=== PATIENT | female | born 1965 | race Caucasian/White ===

== ENCOUNTER 2022-02-05 10:00 | Outpatient (CLI) | payer BC, SELFPAY ==
--- NOTE | 2022-02-05 10:00 | CRLHL7_ITS ---
For Patients: As a result of the 21st Century Cures Act, medical imaging exams and procedure reports are released immediately into your electronic medical record. You may view this report before your referring provider. If you have questions, please contact your health care provider. INDICATION: Right-sided otalgia. TECHNIQUE: CT of the temporal bones without contrast. Coronal and axial small field of view reconstructions of both temporal bones are included. COMPARISON: Temporal bone CT from 12/19/2016. FINDINGS: Right temporal bone: Interval postsurgical changes of right canal wall up mastoidectomy. Mastoid cavity contains gas/air. Right-sided tympanostomy tube is noted. The scutum is mildly blunted. Mild erosions along the superior margin of the superior malleus head and incus are similar compared to prior exam. Ossicular chain is otherwise intact. There is a large defect within the tegmen tympani which measures up to 9 x 11 millimeters in axial diameter. Small amount of soft tissue is present within the superior epitympanum, interposed within this defect. The right middle ear cleft is otherwise well aerated. No evidence of fenestral or retrofenestral otospongiosis. No sclerosis within the labyrinthine canal. 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 Normal cochlear morphology with appropriate number of turns. Vestibular aqueduct is normal in size. Facial nerve canal is intact and normal in course/caliber. Petrous apex is normal. The carotid canal and jugular foramen are normal. Left temporal bone: Interval postsurgical changes of left-sided canal wall up mastoidectomy. Large plug of soft tissue density material within the mastoid cavity is predominantly low density. There is medialization of the left-sided tympanic membrane. There is near complete opacification of the left-sided middle ear cleft. There is blunting of the left sided scutum. The ossicular chain remains intact, although the stapes is poorly visualized due to surrounding soft tissue. There is a large defect within the left-sided tegmen tympani, which measures 9 x 11 millimeters in axial plane. Small amount of soft tissue interposed within the defect. The otic capsule is normal in appearance. No evidence of fenestral or retrofenestral otospongiosis. No sclerosis within the labyrinthine canal. The vestibule and semicircular canals are normal in morphology with no evidence of semicircular canal dehiscence. Normal cochlear morphology with appropriate number of turns. Vestibular aqueduct is normal in size. Facial nerve canal is intact and normal in course/caliber. Petrous apex is normal. The carotid canal and jugular foramen are normal. Multiple lucent defects within the bilateral sphenoid wing/middle cranial fossa floor. Partially empty sella. Orbits are normal. Imaged soft tissue structures are normal in appearance. The paranasal sinuses are well aerated. IMPRESSION: 1. Interval postsurgical changes of bilateral canal wall up mastoidectomies. Right-sided mastoidectomy bowl is clear, whereas the left-sided bowl contains soft tissue. 2. Large defects within the bilateral tegmen tympani compatible with dehiscence. These were present on the prior exam. These defects reflects sequela of cholesteatoma or be due to meningoceles from chronic elevated CSF pressure. There are additional findings suggestive of idiopathic intracranial hypertension, including multiple lucent defects within the middle cranial fossa floor as well as a partially empty sella. Clinical correlation recommended. Temporal bone MRI would be useful further assessment if clinically indicated. 3. Stable mild erosive changes involving the right superior malleus head and incus body. No new erosive changes involving the saccular chain. Middle ear cleft on the left is completely opacified with nonspecific material whereas the right is well aerated. 4. Right superior semicircular canal dehiscence. Please note that all CT scans at this facility use dose modulation, iterative reconstruction, and/or weight-based dosing when appropriate to reduce radiation dose to as low as reasonably achievable. Dictated by Gilmar Kemp MD @ 02/06/2022 10:22:08 AM (Electronically Signed)
== END 2022-02-05 10:01 | disposition home or self-care (01) ==
LOC: CT 10:01
PROVIDERS: PCP Family Medicine; Visit Provider Otolaryngology
DX: H92.01 Otalgia, right ear (principal)
CPT/HCPCS: 70480

== ENCOUNTER 2022-02-07 08:21 | Day surgery (SDC) | payer BC, SELFPAY ==
[2022-02-07] VITALS (10 sets, daily range): BP systolic 112–134; BP diastolic 57–88; PULSE 67–76; RESP 16; TEMP 36.5–37.1; O2SAT 95–98; BMI 29.5
[2022-02-07] MEDS: SODIUM CHLORIDE 0.9 % (FLUSH) 10 ML SYRINGE IVF (09:01)
[2022-02-07] MEDS: LACTATED RINGERS 1000 ML 1,000 ML 100 ML IV (09:01)
--- NOTE | 2022-02-07 10:02 | W.ANESCHARGE ---
Anesthesia Charges Start Date/Time Anesthesia Start Date: 02/07/22 Anesthesia Start Time: 09:34 Stop Date/Time Anesthesia Stop Date: 02/07/22 Anesthesia Stop Time: 10:01 Summary Emergency: No
--- NOTE | 2022-02-07 10:08 | W.ANESCHARGE ---
Anesthesia Charges Start Date/Time Anesthesia Start Date: 02/07/22 Anesthesia Start Time: 09:34 Stop Date/Time Anesthesia Stop Date: 02/07/22 Anesthesia Stop Time: 10:01 Summary Emergency: No
--- NOTE | 2022-02-07 12:24 | W.PM.ENTPROC ---
Procedure Note Date of procedure: 02/07/22 Procedure: Preoperative diagnosis is overgrown left tympanostomy tube with tube in the left middle ear space anteriorly, left serous otitis media, partially occluded right tympanostomy tube Postoperative diagnosis same plus mucoid otitis media left middle ear space Procedure bilateral myringotomy with tubes with removal of left tube from middle ear space Under general mask anesthesia patient was prepped and draped in usual fashion. The tube was identified with the operating microscope in the left middle ear space anteriorly. A radial incision was made and the tube was easily removed with an alligator forceps. A large amount of mucoid fluid was aspirated. Then I made a radial incision more inferiorly and placed a new Duravent tube followed by Ciprodex drops. On the right side the ear was inspected and there was a tube in good position but it was partially occluded. I removed and replaced it with a new tube. Ciprodex drops were then placed. The patient tolerated procedure well was taken recovery in satisfactory condition. Blood loss was less than 5 mL. There were no complications Surgeon: Brayan Gonsalez MD
== END 2022-02-07 11:30 | disposition home or self-care (01) ==
PROVIDERS: PCP Family Medicine; Visit Provider Otolaryngology
PROC: (CPT 69420; principal; 2022-02-07 09:45)
DX: H65.92 Unspecified nonsuppurative otitis media, left ear (principal)
CPT/HCPCS: 69436; 00120; 00170; A9270; J2405; J2704; J3010; J7120